=== PATIENT | male | born 1945 | race Caucasian/White ===

== ENCOUNTER 2024-09-09 15:35 | Emergency (ER) | payer BC, MEDICARE | END 2024-09-09 17:38 | disposition home or self-care (01) | LOC: JP.ED 15:35 | DX: U07.1 COVID-19 (principal) | CPT/HCPCS: 87428-QW; 87651-QW; 99283 ==

== ENCOUNTER 2025-04-26 19:13 | Emergency (ER) | payer BC, MEDICARE ==
[2025-04-26] MEDS: Diphtheria,Pertussis(Acell),Tetanus Vaccine 0.5 ML Syringe IM ONE (20:58)
== END 2025-04-26 23:49 ==
LOC: JP.ED 19:13
DX: S72.001A Fracture of unspecified part of neck of right femur, initial encounter for closed fracture (principal); S50.311A Abrasion of right elbow, initial encounter; Z87.891 Personal history of nicotine dependence; W19.XXXA Unspecified fall, initial encounter; Z23 Encounter for immunization
CPT/HCPCS: 73502-26-RT; 73502-RT; 73552-26-LT; 73552-RT; 73700-RT; 90471; 90715; 99283; 99285-25